=== PATIENT | female | born 1985 | race Caucasian/White ===

== ENCOUNTER 2018-11-06 23:47 | Emergency (ER) | payer OTHER ==
[~2018-11-06] VITALS: Ht 157.5 cm; Wt 47.6 kg
[2018-11-06 23:51] VITALS: BP 107/67
[2018-11-07] MEDS ORDERED: TDAP [DIPH/PERTUSSIS/TET] 0.5 ML VIAL IM ONE ×2 (00:04→00:30)
== END 2018-11-07 00:12 | disposition home or self-care (01) ==
LOC: ER 23:50
DX: S61.231A Puncture wound without foreign body of left index finger without damage to nail, initial encounter (principal); Z90.89 Acquired absence of other organs; Z60.2 Problems related to living alone; W26.0XXA Contact with knife, initial encounter; Y93.E8 Activity, other personal hygiene; Y92.090 Kitchen in other non-institutional residence as the place of occurrence of the external cause; Y99.8 Other external cause status
CPT/HCPCS: 90715